=== PATIENT | male | born 1980 ===

== ENCOUNTER 2018-01-07 19:13 | Emergency (ER) | payer SELFPAY ==
[2018-01-07 19:20] VITALS: O2SAT 99
--- NOTE | 2018-01-07 19:51 | ED PDOC ---
HPI: Psych/Substance Abuse Time Seen by Provider: 01/07/18 19:25 Chief Complaint (Nursing): Alcohol Ingestion Chief Complaint (Provider): Alcohol Ingestion History Per: Patient History/Exam Limitations: intoxication Onset/Duration Of Symptoms: Hrs Current Symptoms Are (Timing): Still Present Modifying Factor(s): Alcohol Additional Complaint(s): 37 y/o male with no significant PMHx brought to the ED by [employer] for public alcohol intoxication. Patient admits to drinking alcohol today. Denies any medical complaints at this time. PMD: None Provided Past Medical History Reviewed: Historical Data, Nursing Documentation, Vital Signs Vital Signs: Last Vital Signs Temp 98.7 F 01/07/18 19:16 Pulse 84 01/07/18 19:16 Resp 20 01/07/18 19:16 BP 133/75 01/07/18 19:16 Pulse Ox 99 01/07/18 19:16 - Medical History PMH: No Chronic Diseases - Surgical History Surgical History: No Surg Hx - Family History Family History: States: Unknown Family Hx - Allergies Allergies/Adverse Reactions: Allergies Allergy/AdvReac Type Severity Reaction Status Date / Time No Known Allergies Allergy Verified 01/07/18 19:16 Review of Systems ROS Statement: Except As Marked, All Systems Reviewed And Found Negative Psych: Positive for: Other (Alcohol Intoxication) Physical Exam - Reviewed Nursing Documentation Reviewed: Yes Vital Signs Reviewed: Yes - Physical Exam Appears: Positive for: No Acute Distress Head Exam: Positive for: ATRAUMATIC, NORMOCEPHALIC Skin: Positive for: Normal Color, Warm, Dry Eye Exam: Positive for: Normal appearance, EOMI Neck: Positive for: Normal, Painless ROM Cardiovascular/Chest: Positive for: Regular Rate, Rhythm. Negative for: Murmur Respiratory: Positive for: Normal Breath Sounds. Negative for: Respiratory Distress Extremity: Positive for: Normal ROM. Negative for: Deformity Neurologic/Psych: Positive for: Alert, Oriented (x3), Gait (unsteady), Other ( slurred speech) - ECG O2 Sat by Pulse Oximetry: 99 (RA) Pulse Ox Interpretation: Normal - Progress Re-evaluation Time: 20:51 Condition: Re-examined, Improved Medical Decision Making Medical Decision Making: Time: 1951 Impression: Alcohol Intoxication Plan: -- Will observe until patient is clinically sober. Scribe Attestation: Documented by Ron Hutchinson acting as a scribe for Raul Velasquez MD. Provider Scribe Attestation: All medical record entries made by the Scribe were at my direction and personally dictated by me. I have reviewed the chart and agree that the record accurately reflects my personal performance of the history, physical exam, medical decision making, and the department course for this patient. I have also personally directed, reviewed, and agree with the discharge instructions and disposition. Disposition - Clinical Impression Clinical Impression: Alcohol abuse - Patient ED Disposition Is Patient to be Admitted: No Doctor Will See Patient In The: Office Counseled Patient/Family Regarding: Studies Performed, Diagnosis, Need For Followup - Disposition Disposition: Routine/Home Disposition Time: 20:51 Condition: GOOD Instructions: Alcohol Abuse and Alcoholism (DC)
[2018-01-07 21:08] VITALS: BP 132/81; PULSE 83; RESP 16; TEMP 98.4
== END 2018-01-07 21:00 | disposition home or self-care (01) ==
LOC: EDBD 19:13 → H.ER 19:13 → MERGE 19:13 → H.ER 21:00
DX: F10.129 Alcohol abuse with intoxication, unspecified (principal)